=== PATIENT | female | born 1985 | race Caucasian/White ===

== ENCOUNTER 2017-08-05 08:09 | Emergency (ER) | payer MEDICAID ==
[~2017-08-05] VITALS: Ht 157.5 cm; Wt 81.8 kg
[~2017-08-05 08:09] MED LIST: PREN-29 PO
[2017-08-05 08:12] VITALS: Ht 157.5 cm; Wt 81.8 kg
[2017-08-05] MEDS ORDERED: SULF1TAB31 PO (08:35)
[2017-08-05] MEDS ORDERED: IBUP-1542 PO (08:35)
[2017-08-05] MEDS ORDERED: CEPH-443 PO (08:35)
--- NOTE | 2017-08-05 08:42 | ERD ---
ER Documentation Chief Complaint Chief Complaint Left eye pain HPI 32-year-old female comes in with a 2 day history of left upper eyelid swelling and pain. The patient described as achy pain, and a sensation of fullness and she is noted erythema as well. She has not had eye trauma, injury, or visual changes. She denies fevers or chills or drainage from the eye. The patient does not wear any corrective lenses or contact lenses. ROS All systems reviewed and are negative except as per history of present illness. Medications Home Meds Active Scripts Ibuprofen* (Motrin*) 600 Mg Tab, 600 MG PO Q6, #30 TAB Prov:HATTIE LINN PA-C 08/05/17 Sulfamethoxazole/Trimethoprim* (Bactrim Ds* Tablet) 1 Each Tablet, 1 TAB PO BID , #14 TAB Prov:HATTIE LINN PA-C 08/05/17 Cephalexin* (Keflex*) 500 Mg Capsule, 500 MG PO QID for 7 Days, CAP Prov:HATTIE LINN PA-C 08/05/17 Reported Medications Vit-Fe Fumarate-FA* (Levi Tablet*) 1 Tab Tablet, 1 TAB PO DAILY, TAB 09/05/14 Allergies Allergies: Coded Allergies: No Known Allergy (Unverified , 09/05/14) PMhx/Soc Medical and Surgical Hx: pt denies Medical Hx, pt denies Surgical Hx Hx Alcohol Use: No Hx Substance Use: No Hx Tobacco Use: No Smoking Status: Never smoker Physical Exam Vitals Vital Signs Date Time Temp Pulse Resp B/P Pulse Ox O2 Delivery O2 Flow Rate FiO2 08/05/17 08:12 98.0 88 18 126/75 99 Physical Exam General: Well-developed, well-nourished. The patient appears in no acute distress. HEENT: Head is normocephalic, atraumatic. No scleral icterus. Eye Exam: Visual Jeter: Intact in all four quadrants bilaterally Lac ducts/glands: No swelling Lids w/ evertion: Left upper eyelid is edematous with erythema. There is no fluctuance Conj/Baker: Clear, no drainage Neck: Supple. Nontender. Lungs: Clear to auscultation. Normal air movement. Heart: Regular rate and rhythm. S1 and S2 are normal. No murmurs, gallops, or rubs. Abdomen: Soft, nontender, nondistended. Bowel sounds are normoactive. Extremities: No clubbing or cyanosis. Normal pulses. Moving extremities x 4. No weakness. Neurologic: Alert and oriented 3. No focal deficits. Skin: Normal turgor. No rash or lesions. Procedures/MDM 32-year-old female comes in with localized infection of the left upper eyelid. No evidence of a deep space infection, orbital cellulitis, conjunctivitis, foreign body, ulcer, trauma, globe rupture, traumatic iritis. Patient will be given Keflex, Bactrim and ibuprofen advised to do warm compresses at home, recheck the area in 2 days. Departure Diagnosis: Primary Impression: Cellulitis of left upper eyelid Condition: Good Patient Instructions: Cellulitis, Facial Additional Instructions: Llame al doctor MAANA y negar flaquita NAYELI PARA DENTRO DE 1-2 SOSA.Dgale a la secretaria que nosotros le instruimos hacer esta nayeli.Avise o llame si rodriguez condicin se empeora antes de la nayeli. Regresa aqui si peor o no mejor. HATTIE LINN PA-C Aug 05, 2017 08:42
== END 2017-08-05 09:03 | disposition home or self-care (01) ==
LOC: FTE 08:09
DX: H00.034 Abscess of left upper eyelid (principal)
CPT/HCPCS: 99284